=== PATIENT | male | born 1980 | race Caucasian/White ===

== ENCOUNTER 2023-05-18 22:05 | Emergency (ER) | payer MEDICAID ==
[2023-05-18] MEDS ORDERED: Lidocaine 1% 5 ML VIAL INJECT ONE (22:40)
[2023-05-18] MEDS ORDERED: Bacitracin Oint 1 GM U/D Packet TOP ONE (22:40)
== END 2023-05-18 23:40 | disposition home or self-care (01) ==
LOC: JP.ED 22:05
DX: S01.511A Laceration without foreign body of lip, initial encounter (principal); W22.8XXA Striking against or struck by other objects, initial encounter
CPT/HCPCS: 12011; 99282